=== PATIENT | male | born 1975 | race Caucasian/White ===

== ENCOUNTER 2017-08-03 23:16 | Emergency (ER) | payer MEDICAID ==
[~2017-08-03] VITALS: Ht 177.8 cm; Wt 77.0 kg
[2017-08-03] MEDS ORDERED: acetaminophen 325mg tablet PO ONE (23:40)
[2017-08-03] MEDS ORDERED: ondansetron 4mg rapidly disintigrating tab PO ONE (23:40)
[2017-08-03] MEDS ORDERED: ONDA4TAB9 PO (23:42)
[2017-08-04 00:02] VITALS: BP 121/90
== END 2017-08-04 00:03 | disposition home or self-care (01) ==
LOC: ER 23:17
DX: F11.23 Opioid dependence with withdrawal (principal); Z00.8 Encounter for other general examination; Z56.0 Unemployment, unspecified
CPT/HCPCS: 99283

== ENCOUNTER 2019-06-06 11:52 | Emergency (ER) | payer MEDICAID ==
[~2019-06-06] VITALS: Ht 177.8 cm; Wt 99.5 kg
[2019-06-06 12:22] VITALS: BP 124/93
[2019-06-06] MEDS ORDERED: AMOX-422 PO (14:42)
[2019-06-06] MEDS ORDERED: HYDROcodone/acetaminophen 5mg/325mg tablet PO ONE (14:45)
[2019-06-06] MEDS ORDERED: ondansetron 4mg rapidly disintigrating tab PO ONE (14:45)
== END 2019-06-06 14:58 | disposition home or self-care (01) ==
LOC: ER 11:52
DX: K02.9 Dental caries, unspecified (principal); H92.02 Otalgia, left ear; R68.84 Jaw pain; R51 Headache; Z79.2 Long term (current) use of antibiotics; Z56.0 Unemployment, unspecified
CPT/HCPCS: 93005; 99283

== ENCOUNTER 2019-09-05 19:46 | Emergency (ER) | payer MEDICAID ==
[~2019-09-05] VITALS: Ht 177.8 cm; Wt 99.0 kg
[2019-09-05 20:22] VITALS: BP 154/96
[2019-09-05] MEDS ORDERED: CLIN-97 PO (20:39)
[2019-09-05] MEDS ORDERED: HYDR-3965 PO (20:39)
== END 2019-09-05 20:45 | disposition home or self-care (01) ==
LOC: ER 19:47
DX: K05.10 Chronic gingivitis, plaque induced (principal); Z56.0 Unemployment, unspecified; Z79.2 Long term (current) use of antibiotics; Z79.899 Other long term (current) drug therapy
CPT/HCPCS: 99283

== ENCOUNTER 2020-02-24 13:57 | Emergency (ER) | payer MEDICAID ==
[~2020-02-24 13:57] MED LIST: CLIN-97 PO
[2020-02-24 14:12] VITALS: BP 123/88
[2020-02-24] MEDS ORDERED: AMOX-422 PO (15:13)
== END 2020-02-24 15:40 | disposition home or self-care (01) ==
LOC: ER 13:57
DX: J32.9 Chronic sinusitis, unspecified (principal); Z56.0 Unemployment, unspecified; Z79.899 Other long term (current) drug therapy
CPT/HCPCS: 99283

== ENCOUNTER 2021-03-14 14:37 | Emergency (ER) | payer MEDICAID | END 2021-03-14 14:43 | disposition left against medical advice (07) | LOC: ER 14:37 | DX: L00 Staphylococcal scalded skin syndrome (principal); Z53.21 Procedure and treatment not carried out due to patient leaving prior to being seen by health care provider ==

== ENCOUNTER 2023-08-07 13:39 | Emergency (ER) | payer MEDICAID | END 2023-08-07 14:32 | disposition left against medical advice (07) | LOC: ER 13:39 | DX: Z53.21 Procedure and treatment not carried out due to patient leaving prior to being seen by health care provider (principal) ==

== ENCOUNTER 2023-08-08 13:22 | Emergency (ER) | payer MEDICAID ==
[~2023-08-08] VITALS: Ht 177.8 cm; Wt 99.0 kg
[2023-08-08 13:24] VITALS: PULSE 82; TEMP 98
[2023-08-08 15:14] VITALS: BP 132/104; RESP 18; O2SAT 98
== END 2023-08-08 15:17 | disposition home or self-care (01) ==
LOC: ER 13:23
DX: F11.10 Opioid abuse, uncomplicated (principal); F17.200 Nicotine dependence, unspecified, uncomplicated; F15.10 Other stimulant abuse, uncomplicated
CPT/HCPCS: 99281

== ENCOUNTER 2023-09-23 15:13 | Outpatient (CLI) | payer MEDICAID | END 2023-09-23 23:59 | disposition home or self-care (01) | LOC: RAD 15:13 | PROVIDERS: ATTEND Physician Assistant | DX: F11.20 Opioid dependence, uncomplicated (principal) | CPT/HCPCS: 93005 ==